=== PATIENT | male | born 1960 ===

== ENCOUNTER 2021-02-18 19:22 | Emergency (ER) | payer BC ==
[2021-02-18] MEDS ORDERED: Sodium Chloride 0.9% 10 ML Syringe FLUSH PRN (19:44)
[2021-02-18] MEDS ORDERED: methylPREDNISolone Sodium Succinate 125 MG/2 ML SDV IVPUSH ONE (19:44)
[2021-02-18] MEDS ORDERED: Sodium Chloride 0.9% 2.5 ML Syringe FLUSH PRN (19:44)
[2021-02-18] MEDS ORDERED: Albuterol/Ipratropium 4 GM Inhalation Spray INH STA (19:46)
--- NOTE | 2021-02-18 19:49 | EDM.PDOC ---
ED HPI GENERAL MEDICAL PROBLEM - General Chief Complaint: Respiratory Problem Stated Complaint: UPPER RESPIRATORY, FLUID IN LUNGS Time Seen by Provider: 02/18/21 19:32 - History of Present Illness INITIAL COMMENTS - FREE TEXT/NARRATIVE: History of present illness: [] Patient who has COPD and still smokes is not oxygen dependent and not currently using an inhaler nebulizer. For 24 hours he has increasing shortness of breath and cough. He feels feverish and has sweats. He has dyspnea on exertion. He coughs up phlegm. The patient has no recent test for COVID-19. He is not been positive in the past. Review of systems: As per history of present illness and below otherwise all systems reviewed and negative. Past medical history: As per history of present illness and as reviewed below otherwise noncontributory. Surgical history: As per history of present illness and as reviewed below otherwise noncontributory. Social history: No reported history of drug or alcohol abuse. Family history: As per history of present illness and as reviewed below otherwise noncontributory. Physical exam: Constitutional - well developed, well-nourished and in no acute distress HEENT - normocephalic, no evidence of trauma - external nose and mouth normal - no mass in neck and no JVD - mucosae moist EYES - full EOM, PERRL, no icterus - no evidence of inflammation, injection, or drainage Respiratory -equal bilateral expansion-prolonged expiratory phase of respiration-diminished breath sounds and scattered rhonchi- Cardiovascular - Regular Rhythm with S1 and S2 appreciated and no murmur, gallop or rub. GI - abdomen soft without distension or organomegaly - normal bowel sounds - no guard or rebound Musculoskeletal no gross deformity of long bones or joints - no tenderness, swelling or edema Neurologic - Alert and oriented times four - CN II-XII grossly intact - motor sensory and coordination symmetrically normal Psychiatric - appropriate mood and affect with normal thought content Hematologic - No petechiae or purpura - mucosa appropriate color and sclera not pale - normal nail bed color and refill Integument - no rash or evidence of trauma - normal turgor Diagnostics: [] Therapeutics: [] Impression: [] Plan: [] Definitive disposition and diagnosis as appropriate pending reevaluation and review of above. - Related Data Allergies Allergy/AdvReac Type Severity Reaction Status Date / Time No Known Allergies Allergy Verified 02/18/21 19:44 Home Meds: Home Meds Azithromycin [Zithromax] 250 mg PO DAILY 4 Days #4 tab 02/19/21 [Rx] predniSONE [Prednisone] 60 mg PO DAILY #21 tablet 02/19/21 [Rx] ED ROS GENERAL - Review of Systems Review Of Systems: Comprehensive ROS is negative, except as noted in HPI. ED EXAM, GENERAL - Physical Exam Exam: See Below Free Text/Narrative:: My physical exam is in the HPI #1 Interpretation EKG Interpretation Comments: An EKG was done at 1 hrs. The patient has a sinus tachycardia with a heart rate of 124. His ME interval is 143 QT duration 490 [place] 80. There is a Q-wave in aVL. There is a late transition to R wave in the precordium. There is no prior for comparison. My impression is that this EKG shows no acute injury. Course - Vital Signs Text/Narrative:: 3 hrs. the patient has improved. We will try to get him off oxygen. The x- ray had some minor increased markings but not read as focal infiltrate according to the radiologist. The patient has an elevation of white count with predominantly neutrophils. Clinically I suspect this patient has a lower respiratory tract infection. COVID-19 is negative. That was certainly high in the differential. Place the patient on antibiotics and if I can get him off oxygen I will send him home with the inhaler, the extension chamber, and Zithromax. The patient is a 90% to 91% oxygen saturation on 1 L of nasal cannula. He has rales in the right base but his lungs are more clear now he does not feel much better after the inhalation using the chamber. 2211 hrs. the patient feels better and wants to go home. His oxygen saturation dropped to 86% on room air. That is without any activity. Plan to hydrate and give a third treatment and then decide disposition. 000 11 hours the patient tolerated activity well his sat dropped to 88 to 89% on room air. The patient wanted to go home. He has COPD and if he felt better I allowed him to go home although I offered him observation overnight while we waited for steroids to fully kick him and try to see if we can get his oxygen saturation higher. He was essentially asymptomatic compared to his usual and said he always wheezes somewhat. Lungs did have some wheezes throughout but his air exchange was good. Last Recorded V/S: Last Vital Signs Temp 36.3 C 02/18/21 19:34 Pulse 120 H 02/18/21 21:51 Resp 21 H 02/18/21 21:51 BP 132/84 02/18/21 21:51 Pulse Ox 91 L 02/18/21 21:51 - Orders/Labs/Meds Orders: Active Orders 24 hr Category Date Time Status EKG Documentation Completion [RC] AM Care 02/18/21 19:44 Active RT Aerosol Therapy [RC] ASDIRECTED Care 02/18/21 21:18 Active RT Aerosol Therapy [RC] ASDIRECTED Care 02/18/21 23:10 Active RT Post Treatment Assessment [RC] Click to Edit Care 02/18/21 19:47 Active RT Pre-Treatment Assessment [RC] Click to Edit Care 02/18/21 19:47 Active Sodium Chloride 0.9% [Saline Flush] Med 02/18/21 19:44 Active 10 ml FLUSH ASDIRECTED PRN Sodium Chloride 0.9% [Saline Flush] Med 02/18/21 19:44 Active 2.5 ml FLUSH ASDIRECTED PRN Saline Lock Insert [OM.PC] Stat Oth 02/18/21 19:44 Ordered Medication Orders Sodium Chloride (Sodium Chloride 0.9% 10 Ml Syringe) 10 ml FLUSH ASDIRECTED PRN PRN Reason: Keep Vein Open Last Admin: 02/18/21 20:10 Dose: 10 ml Documented by: HILDA Sodium Chloride (Sodium Chloride 0.9% 2.5 Ml Syringe) 2.5 ml FLUSH ASDIRECTED PRN PRN Reason: Keep Vein Open Last Admin: 02/18/21 20:10 Dose: 2.5 ml Documented by: HILDA Labs: Laboratory Tests 02/18/21 02/18/21 02/18/21 Range/Units 20:00 20:00 20:00 WBC 16.01 H (4.0-11.0) K/uL RBC 5.08 (4.50-5.90) M/uL Hgb 16.7 (13.0-17.0) g/dL Hct 49.8 (38.0-50.0) % MCV 98.0 (80.0-98.0) fL MCH 32.9 H (27.0-32.0) pg MCHC 33.5 (31.0-37.0) g/dL RDW Std Deviation 46.8 (28.0-62.0) fl RDW Coeff of Alan 13 (11.0-15.0) % Plt Count 221 (150-400) K/uL MPV 10.90 (7.40-12.00) fL Neut % (Auto) 86.8 H (48.0-80.0) % Lymph % (Auto) 6.2 L (16.0-40.0) % [place] % (Auto) 6.7 (0.0-15.0) % Eos % (Auto) 0.2 (0.0-7.0) % Baso % (Auto) 0.1 (0.0-1.5) % Neut # (Auto) 13.9 H (1.4-5.7) K/uL Lymph # (Auto) 1.0 (0.6-2.4) K/uL [place] # (Auto) 1.1 H (0.0-0.8) K/uL Eos # (Auto) 0.0 (0.0-0.7) K/uL Baso # (Auto) 0.0 (0.0-0.1) K/uL Nucleated RBC % 0.0 /100WBC Nucleated RBCs # 0 K/uL Sodium 142 (136-148) mmol/L Potassium 3.6 (3.5-5.1) mmol/L Chloride 102 (98-107) mmol/L Carbon Dioxide 28.1 (21.0-32.0) mmol/L BUN 13 (7.0-18.0) mg/dL Creatinine 0.8 (0.8-1.3) mg/dL Est Cr Clr Drug Dosing 98.85 mL/min Estimated GFR (MDRD) > 60.0 ml/min Glucose 111 H (74-106) mg/dL Calcium 8.9 (8.5-10.1) mg/dL Total Bilirubin 0.5 (0.2-1.0) mg/dL AST 23 (15-37) IU/L ALT 33 (14-63) IU/L Alkaline Phosphatase 100 (46-116) U/L Troponin I < 0.050 (0.000-0.056) ng/mL B-Natriuretic Peptide 149 H (<100) PG/ML Total Protein 7.5 (6.4-8.2) g/dL Albumin 3.7 (3.4-5.0) g/dL Globulin 3.8 (2.6-4.0) g/dL Albumin/Globulin Ratio 1.0 (0.9-1.6) SARS-CoV-2 RNA (GUDELIA) (NEGATIVE) 02/18/21 Range/Units 20:00 WBC (4.0-11.0) K/uL RBC (4.50-5.90) M/uL Hgb (13.0-17.0) g/dL Hct (38.0-50.0) % MCV (80.0-98.0) fL MCH (27.0-32.0) pg MCHC (31.0-37.0) g/dL RDW Std Deviation (28.0-62.0) fl RDW Coeff of Alan (11.0-15.0) % Plt Count (150-400) K/uL MPV (7.40-12.00) fL Neut % (Auto) (48.0-80.0) % Lymph % (Auto) (16.0-40.0) % [place] % (Auto) (0.0-15.0) % Eos % (Auto) (0.0-7.0) % Baso % (Auto) (0.0-1.5) % Neut # (Auto) (1.4-5.7) K/uL Lymph # (Auto) (0.6-2.4) K/uL [place] # (Auto) (0.0-0.8) K/uL Eos # (Auto) (0.0-0.7) K/uL Baso # (Auto) (0.0-0.1) K/uL Nucleated RBC % /100WBC Nucleated RBCs # K/uL Sodium (136-148) mmol/L Potassium (3.5-5.1) mmol/L Chloride (98-107) mmol/L Carbon Dioxide (21.0-32.0) mmol/L BUN (7.0-18.0) mg/dL Creatinine (0.8-1.3) mg/dL Est Cr Clr Drug Dosing mL/min Estimated GFR (MDRD) ml/min Glucose (74-106) mg/dL Calcium (8.5-10.1) mg/dL Total Bilirubin (0.2-1.0) mg/dL AST (15-37) IU/L ALT (14-63) IU/L Alkaline Phosphatase (46-116) U/L Troponin I (0.000-0.056) ng/mL B-Natriuretic Peptide (<100) PG/ML Total Protein (6.4-8.2) g/dL Albumin (3.4-5.0) g/dL Globulin (2.6-4.0) g/dL Albumin/Globulin Ratio (0.9-1.6) SARS-CoV-2 RNA (GUDELIA) NEGATIVE (NEGATIVE) Meds: Medications Generic Name Dose Route Start Last Admin Trade Name Jedq PRN Reason Stop Dose Admin Sodium Chloride 10 ml 02/18/21 19:44 02/18/21 20:10 Sodium Chloride 0.9% 10 Ml Syringe FLUSH 10 ml ASDIRECTED PRN Administration Keep Vein Open Sodium Chloride 2.5 ml 02/18/21 19:44 02/18/21 20:10 Sodium Chloride 0.9% 2.5 Ml Syringe FLUSH 2.5 ml ASDIRECTED PRN Administration Keep Vein Open Discontinued Medications Generic Name Dose Route Start Last Admin Trade Name Freq PRN Reason Stop Dose Admin Albuterol 2.5 mg 02/18/21 23:10 02/18/21 23:25 Albuterol 0.083% 2.5 Mg/3 Ml Neb Soln NEB 02/18/21 23:11 2.5 mg ONETIME ONE Administration Albuterol/Ipratropium 8 gm 02/18/21 19:46 02/18/21 20:57 Albuterol/Ipratropium 4 Gm Inhalation Isom INH 02/18/21 19:47 8 gm STAT STA Administration Albuterol/Ipratropium 3 ml 02/18/21 21:18 02/18/21 21:35 Albuterol/Ipratropium 3.0-0.5 Mg/3 Ml Neb Soln NEB 02/18/21 21:19 3 ml ONETIME ONE Administration Azithromycin 500 mg 02/18/21 21:14 02/18/21 21:35 Azithromycin 250 Mg Tab PO 02/18/21 21:15 500 mg STAT STA Administration Sodium Chloride 1,000 mls @ 1,000 mls/hr 02/18/21 22:10 02/18/21 22:33 Normal Saline IV 02/18/21 23:09 1,000 mls/hr .Bolus ONE Administration Methylprednisolone Sodium Succinate 125 mg 02/18/21 19:44 02/18/21 20:09 Methylprednisolone Sodium Succinate 125 Mg/2 Ml Sdv IVPUSH 02/18/21 19:45 125 mg ONETIME ONE Administration Departure - Departure Time of Disposition: 00:12 Disposition: Home, Self-Care 01 Condition: Good Clinical Impression: Lower respiratory tract infection, COPD exacerbation - Discharge Information Prescriptions: predniSONE [Prednisone] 60 mg PO DAILY #21 tablet Azithromycin [Zithromax] 250 mg PO DAILY 4 Days #4 tab Instructions: Steps to Quit Smoking, [id number], Community-Acquired Pneumonia, Adult, [id number], Chronic Obstructive Pulmonary Disease, [id number] Referrals: PCP,None [Primary Care Provider] - Forms: ED Department Discharge Sepsis Event Note (ED) - Evaluation Sepsis Screening Result: No Definite Risk - Focused Exam Vital Signs: Vital Signs Temp Pulse Resp BP Pulse Ox 02/18/21 21:51 120 H 21 H 132/84 91 L 02/18/21 21:30 93 22 H 141/73 H 91 L 02/18/21 21:05 98 22 H 136/87 90 L 02/18/21 19:34 36.3 C 110 H 22 H 163/108 H 89 L - My Orders Last 24 Hours: My Active Orders 02/18/21 19:44 EKG Documentation Completion [RC] AM Sodium Chloride 0.9% [Saline Flush] 10 ml FLUSH ASDIRECTED PRN Sodium Chloride 0.9% [Saline Flush] 2.5 ml FLUSH ASDIRECTED PRN Saline Lock Insert [OM.PC] Stat 02/18/21 19:47 RT Post Treatment Assessment [RC] Click to Edit RT Pre-Treatment Assessment [RC] Click to Edit 02/18/21 21:18 RT Aerosol Therapy [RC] ASDIRECTED 02/18/21 23:10 RT Aerosol Therapy [RC] ASDIRECTED - Assessment/Plan Last 24 Hours: My Active Orders 02/18/21 19:44 EKG Documentation Completion [RC] AM Sodium Chloride 0.9% [Saline Flush] 10 ml FLUSH ASDIRECTED PRN Sodium Chloride 0.9% [Saline Flush] 2.5 ml FLUSH ASDIRECTED PRN Saline Lock Insert [OM.PC] Stat 02/18/21 19:47 RT Post Treatment Assessment [RC] Click to Edit RT Pre-Treatment Assessment [RC] Click to Edit 02/18/21 21:18 RT Aerosol Therapy [RC] ASDIRECTED 02/18/21 23:10 RT Aerosol Therapy [RC] ASDIRECTED
[2021-02-18 20:46] LABS: BLOOD UREA NITROGEN,BUN 13 mg/dL (7.0-18.0); CARBON DIOXIDE,CO2 28.1 mmol/L (21.0-32.0); CHLORIDE,CL 102 mmol/L (98-107); GLUCOSE RANDOM 111 mg/dL (74-106); POTASSIUM,K 3.6 mmol/L (3.5-5.1); SODIUM,NA 142 mmol/L (136-148)
--- NOTE | 2021-02-18 20:58 | CR ---
INDICATION: Dyspnea TECHNIQUE: Chest 1 view. COMPARISON: None available FINDINGS: The heart is mildly enlarged, however this may accentuated do to AP technique. The pulmonary vasculature is within normal limits. The lungs are clear. Negative for focal consolidation, pleural effusion or pneumothorax. IMPRESSION: No acute process. Dictated by Katie Faustin MD @ 02/18/2021 8:56:[address] Katie Faustin @ Feb 18 2021 8:56PM
[2021-02-18] MEDS ORDERED: Azithromycin 250 MG Tab PO STA (21:14)
[2021-02-18] MEDS ORDERED: Albuterol/Ipratropium 3.0-0.5 MG/3 ML Neb Soln NEB ONE (21:18)
[2021-02-18] MEDS ORDERED: Sodium Chloride 0.9% 1,000 ML IV ONE (22:10)
[2021-02-18] MEDS ORDERED: Albuterol 0.083% 2.5 MG/3 ML Neb Soln NEB ONE (23:10)
== END 2021-02-19 00:23 | disposition home or self-care (01) ==
LOC: MW.ED 19:22
DX: J44.0 Chronic obstructive pulmonary disease with (acute) lower respiratory infection (principal); J44.1 Chronic obstructive pulmonary disease with (acute) exacerbation; J22 Unspecified acute lower respiratory infection; F17.200 Nicotine dependence, unspecified, uncomplicated; Z20.822 Contact with and (suspected) exposure to COVID-19
CPT/HCPCS: 36415; 71045; 80053; 83880; 84484; 85025; 87635; 96374; 99285; A9270; J2930; J7030; J7620-GY; U0002